=== PATIENT | male | born 1955 | race Caucasian/White ===

== ENCOUNTER → 2023-12-09 15:29 | Outpatient (REF) | payer MEDICARE, OTHER, SELFPAY ==
--- NOTE | 2023-12-15 11:15 | OID.L.PAT ---
Pulmonary Nodule Pat Letter
- -
12/15/23
ALESSIO GRIFFITH
[address] [facility]
[place] [address]
Sean MCCALLUM,
A pulmonary nodule was seen on an imaging study done by [facility]. This was reviewed by the [facility] Pulmonary Nodule Advisory Board and the following recommendation was made:
Recommendation: No further follow-up
If you have any questions, please do not hesitate to contact your primary care physician. If you are in need of a Physician, you can go to [email or web address] and click on 'Find a Provider'. Type 'Family Medicine' in the search.
Oncology Nurse Navigator
[facility]
[phone]
--- NOTE | 2023-12-15 11:17 | OID.L.REC ---
Pulmonary Nodule Follow Up
- Recommendation
12/15/23
Pulmonary Nodule Review Recommendations
Your patient, ALESSOI GRIFFITH, had a pulmonary nodule on an imaging study done 12/09/2023 in the [facility].
This was reviewed by the [facility] Pulmonary Nodule Advisory Board and the following recommendation was made:
Recommendation: No further follow-up
If you have any questions please do not hesitate to call us.
Sincerely,
Oncology Nurse Navigator
[facility]
[phone]
== END ==
LOC: HWRAD 15:29
PROVIDERS: ATTENDING PHYSICIAN Internal Medicine Pulmonary Disease; FAMILY PHYSICIAN Internal Medicine
DX: R06.00 Dyspnea, unspecified (principal)
CPT/HCPCS: 70490; 71250

== ENCOUNTER → 2024-01-23 13:48 | Outpatient (REF) | payer MEDICARE, OTHER, SELFPAY | LOC: HWRAD 13:48 | PROVIDERS: ATTENDING PHYSICIAN Internal Medicine | DX: M25.552 Pain in left hip (principal) | CPT/HCPCS: 72110; 73502 ==

== ENCOUNTER → 2024-01-29 13:31 | Outpatient (REF) | payer MEDICARE, OTHER, SELFPAY | LOC: MRI 3T 13:31 | PROVIDERS: ATTENDING PHYSICIAN Specialist/Technologist Athletic Trainer; FAMILY PHYSICIAN Internal Medicine | DX: S43.421S Sprain of right rotator cuff capsule, sequela (principal); M25.511 Pain in right shoulder | CPT/HCPCS: 23350; 73040; 73222 ==

== ENCOUNTER 2025-03-23 06:21 | Day surgery (SDC) | payer MEDICARE, OTHER, SELFPAY | END 2025-03-23 13:25 | disposition home or self-care (01) | LOC: GI 06:21 | PROVIDERS: ATTENDING PHYSICIAN Internal Medicine Gastroenterology | DX: Z12.11 Encounter for screening for malignant neoplasm of colon (principal); R19.5 Other fecal abnormalities; N40.0 Benign prostatic hyperplasia without lower urinary tract symptoms; K57.30 Diverticulosis of large intestine without perforation or abscess without bleeding; K64.8 Other hemorrhoids | CPT/HCPCS: 45385; 88305 ==